=== PATIENT | female | born 1975 | race Caucasian/White ===

== ENCOUNTER 2016-08-30 14:59 | Emergency (ER) | payer MEDICAID | END 2016-08-30 17:36 | disposition left against medical advice (07) | LOC: D.ER 14:59 | DX: S89.91XA Unspecified injury of right lower leg, initial encounter (principal); W19.XXXA Unspecified fall, initial encounter; Y93.89 Activity, other specified; Y92.89 Other specified places as the place of occurrence of the external cause ==

== ENCOUNTER 2016-08-30 19:56 | Emergency (ER) | payer MEDICAID | END 2016-08-30 21:36 | disposition home or self-care (01) | LOC: D.ER 19:56 | DX: S93.401A Sprain of unspecified ligament of right ankle, initial encounter (principal); W01.0XXA Fall on same level from slipping, tripping and stumbling without subsequent striking against object, initial encounter; Y93.89 Activity, other specified; Y92.019 Unspecified place in single-family (private) house as the place of occurrence of the external cause; F41.9 Anxiety disorder, unspecified; F31.9 Bipolar disorder, unspecified; F17.200 Nicotine dependence, unspecified, uncomplicated ==

== ENCOUNTER 2018-03-29 18:25 | Emergency (ER) | payer MEDICAID ==
[~2018-03-29] VITALS: Ht 162.6 cm; Wt 59.1 kg
[2018-03-29 18:30] VITALS: Ht 162.6 cm; Wt 59.1 kg
[2018-03-29] MEDS ORDERED: TOPAMAX50 MG PO (19:40)
[2018-03-29] MEDS ORDERED: LAMICTAL25 MG PO (19:40)
[2018-03-29 20:16] VITALS: BP 121/76
== END 2018-03-29 20:13 | disposition home or self-care (01) ==
LOC: D.ER 18:25
DX: G40.909 Epilepsy, unspecified, not intractable, without status epilepticus (principal); F41.9 Anxiety disorder, unspecified; G62.9 Polyneuropathy, unspecified